=== PATIENT | female | born 1985 | race Caucasian/White ===

== ENCOUNTER 2016-11-24 18:06 | Emergency (ER) | payer OTHER ==
[~2016-11-24] VITALS: Ht 162.6 cm; Wt 72.7 kg
[~2016-11-24 18:06] MED LIST: AMOXICILLIN 25250 MG PO; AMOXICILLIN 8751 TAB PO; CORTISPORIN OTI10 M2 OT; LORTAB 5/500 501 TAB PO; MACROBID100 MG PO; NAPROSYN500 MG PO; NO HOME MEDICATIONS; PENICILLIN V500 MG PO; PHENERGAN W/CO120 ML PO; PREDNISONE20 MG PO; PRENATAL VITAMI1 TA5 PO; TYLENOL 325MG325 MG PO; theraflu
[2016-11-24 18:16] VITALS: BP 112/71; TEMP 98.4
[2016-11-24] MEDS ORDERED: PREDNISONE20 MG PO (19:54)
[2016-11-24 20:02] VITALS: PULSE 71
[2016-11-27] MEDS ORDERED: AMOXICILLIN 50500 MG PO (18:06)
== END 2016-11-24 20:01 | disposition home or self-care (01) ==
LOC: COL.ER 18:06
DX: J01.90 Acute sinusitis, unspecified (principal)

== ENCOUNTER 2017-02-05 21:11 | Emergency (ER) | payer OTHER ==
[~2017-02-05] VITALS: Ht 162.6 cm; Wt 70.5 kg
[~2017-02-05 21:11] MED LIST changes: +AMOXICILLIN 50500 MG PO
[2017-02-05 21:14] VITALS: BP 127/75; PULSE 65; TEMP 98.5
[2017-02-05] MEDS ORDERED: AMOXICILLIN 8751 TAB PO (21:29)
== END 2017-02-05 21:52 | disposition home or self-care (01) ==
LOC: COL.ER 21:11
DX: K08.89 Other specified disorders of teeth and supporting structures (principal); K00.6 Disturbances in tooth eruption

== ENCOUNTER 2017-03-25 07:56 | Emergency (ER) | payer OTHER ==
[~2017-03-25] VITALS: Ht 162.6 cm; Wt 75.0 kg
[2017-03-25 08:04] VITALS: BP 105/77; PULSE 95; TEMP 98.1
[2017-03-25] MEDS ORDERED: HAIRSKINNAILS PO (08:07)
[2017-03-25] MEDS ORDERED: AMOXICILLIN875 MG PO (09:19)
== END 2017-03-25 09:46 | disposition home or self-care (01) ==
LOC: COL.ER 07:56
DX: J02.9 Acute pharyngitis, unspecified (principal); Z20.89 Contact with and (suspected) exposure to other communicable diseases

== ENCOUNTER 2017-04-26 18:40 | Emergency (ER) | payer OTHER ==
[~2017-04-26] VITALS: Ht 162.6 cm; Wt 74.1 kg
[~2017-04-26 18:40] MED LIST changes: +AMOXICILLIN875 MG PO; +HAIRSKINNAILS PO
[2017-04-26 18:47] VITALS: BP 111/70; TEMP 99.3
[2017-04-26 19:27] LABS: BASO % 0.1 % (0.0-2.0); EOS # 0.1 (0.0-0.7); EOS % 0.6 % (0-4.0); GRAN # 13.6 (1.4-6.5); GRAN % 89.1 % (42.2-75.2); HEMATOCRIT 41.1 % (37.0-47.0); HEMOGLOBIN 13.8 g/dl (12.5-16.0); LYMPH # 0.6 (1.2-3.4); LYMPH % 3.6 % (20.0-51.0); MEAN CELL VOLUME 93 fl (80.0-100.0); MEAN CORPUSCULAR HEMOGLOBIN 31 pg (27.0-31.0); MEAN CORPUSCULAR HGB CONC 34 g/dl (33.0-37.0); MEAN PLATELET VOLUME 9.6 fl (7.4-10.4); MONO % 6.2 % (1.7-9.3); PLATELET COUNT 250 K/mm3 (130-400); RED BLOOD COUNT 4.43 M/mm3 (4.10-5.30); REDCELL DISTRIBUTION WIDTH-CV 13.1 % (11.5-14.5); WHITE BLOOD COUNT 15.2 K/mm3 (4.8-10.8)
[2017-04-26 19:36] LABS: ADJUSTED CALCIUM 8.7 mg/dL (8.4-10.2); ALBUMIN 3.9 gm/dL (3.5-5.0); CALCIUM 8.6 mg/dL (8.4-10.2); CREATININE, serum 0.68 mg/dL (0.52-1.25); POTASSIUM 3.7 mmol/L (3.4-5.0); TOTAL PROTEIN 6.9 gm/dL (6.4-8.2)
[2017-04-26 20:02] LABS: PH 6 (5-8); SQUAMOUS EPITHELIAL 0-2 /hpf; URINE APPEARANCE Clear; URINE BACTERIA None Seen /hpf; URINE BILIRUBIN Negative (NEGATIVE); URINE BLOOD Negative (NEGATIVE); URINE COLOR Yellow; URINE GLUCOSE Negative (NEGATIVE); URINE KETONE Trace (NEGATIVE); URINE RBC 0-2 /hpf; URINE UROBILINOGEN Negative (NEGATIVE); URINE WBC 0-2 /hpf
[2017-04-26] MEDS ORDERED: ZOFRAN ODT4 MG PO (21:27)
[2017-04-26] MEDS ORDERED: ULTRAM 50MG TAB50 MG PO (21:27)
[2017-04-26 21:40] VITALS: PULSE 63
== END 2017-04-26 21:42 | disposition home or self-care (01) ==
LOC: COL.ER 18:40
PROVIDERS: Emergency Medicine
DX: R10.33 Periumbilical pain (principal); R11.2 Nausea with vomiting, unspecified
CPT/HCPCS: J1885; J2405; J7030; Q9967

== ENCOUNTER 2017-05-25 09:55 | Emergency (ER) | payer OTHER ==
[~2017-05-25] VITALS: Ht 162.6 cm; Wt 72.7 kg
[~2017-05-25 09:55] MED LIST changes: +ULTRAM 50MG TAB50 MG PO; +ZOFRAN ODT4 MG PO
[2017-05-25 09:59] VITALS: BP 116/72; PULSE 53; TEMP 98
== END 2017-05-25 11:47 | disposition home or self-care (01) ==
LOC: COL.ER 09:55
DX: T17.990A Other foreign object in respiratory tract, part unspecified in causing asphyxiation, initial encounter (principal); R11.0 Nausea; R51 Headache; R05 Cough; X58.XXXA Exposure to other specified factors, initial encounter; Y92.828 Other wilderness area as the place of occurrence of the external cause

== ENCOUNTER 2023-08-25 20:01 | Emergency (ER) | payer SELFPAY ==
[~2023-08-25] VITALS: Ht 165.1 cm; Wt 90.9 kg
[2023-08-25 20:05] VITALS: TEMP 98.1
[2023-08-25] MEDS ORDERED: PREDNISONE20 MG PO (21:20)
[2023-08-25] MEDS ORDERED: PROAIR HFA0.09 MG/AC IH (21:20)
--- NOTE | 2023-08-25 21:44 | NUR ---
PT BS ARE CLEAR THROUGHOUT, NO RESP HX.
[2023-08-25 22:10] VITALS: BP 129/80; PULSE 87
== END 2023-08-25 22:10 | disposition home or self-care (01) ==
LOC: COL.ER 20:01
DX: J20.9 Acute bronchitis, unspecified (principal); Z20.822 Contact with and (suspected) exposure to COVID-19; Z28.310 Unvaccinated for COVID-19
CPT/HCPCS: J7512